=== PATIENT | female | born 1975 | race Caucasian/White ===

== ENCOUNTER 2023-08-25 16:45 | Emergency (ER) | payer OTHER, SELFPAY ==
[2023-08-25 17:36] VITALS: PULSE 95; RESP 18; TEMP 38; O2SAT 98
--- NOTE | 2023-08-25 17:36 | CRLHL7_ITS ---
For Patients: As a result of the Century Cures Act, medical imaging exams and procedure reports are released immediately into your electronic medical record. You may view this report before your referring provider. If you have questions, please contact your health care provider. INDICATION: Fever. Cough. TECHNIQUE: Noncontrast CT images acquired through the paranasal sinuses. COMPARISON: None. FINDINGS: No air-fluid levels to suggest acute sinusitis. Mild mucosal thickening in the maxillary sinuses. The right ethmoid infundibulum is opacified. The left ethmoid infundibulum is partially opacified. The frontal sinuses are hypoplastic. Mild mucosal thickening in the frontal recesses. [id number] opacification of the anterior ethmoid air cells. Mild mucosal thickening in the right greater left sphenoid sinuses. The right sphenoethmoidal recess is opacified. The left sphenoethmoidal recess is clear. Slight rightward nasal septal deviation. No nasal cavity masses. The mastoid air cells are underpneumatized bilaterally. IMPRESSION: Mild paranasal sinus mucosal disease. No air-fluid levels to suggest acute sinusitis. Please note that all CT scans at this facility use dose modulation, iterative reconstruction, and/or weight-based dosing when appropriate to reduce radiation dose to as low as reasonably achievable. Dictated by Darin Sutton MD @ 08/25/2023 7:05:14 PM (Electronically Signed)
--- NOTE | 2023-08-25 17:39 | CRLHL7_ITS ---
For Patients: As a result of the Century Cures Act, medical imaging exams and procedure reports are released immediately into your electronic medical record. You may view this report before your referring provider. If you have questions, please contact your health care provider. INDICATION: Fever, cough. TECHNIQUE: CT chest PE was acquired with 95 cc Isovue 370 IV contrast. COMPARISON: None. FINDINGS: Heart and vasculature: Contrast opacification of the pulmonary arterial tree is adequate. No sign of pulmonary embolism. Prominent heart size. Thoracic aorta and pulmonary artery are normal in caliber. Lungs and pleura: Biapical scarring. Scattered atelectasis. No suspicious nodules or infiltrates. No pleural effusions, pleural thickening, or pneumothorax. Lymph nodes/mediastinum: No mediastinal, hilar, or axillary adenopathy. Chest wall: No masses. Upper abdomen: No acute or significant findings. Bones: Unremarkable for age. IMPRESSION: No pulmonary embolism. No focal consolidations. Please note that all CT scans at this facility use dose modulation, iterative reconstruction, and/or weight-based dosing when appropriate to reduce radiation dose to as low as reasonably achievable. Dictated by Reginald Torres MD @ 08/25/2023 6:49:09 PM (Electronically Signed)
--- NOTE | 2023-08-25 17:52 | ED.GENADULT ---
HPI - General Adult General Chief complaint: Fever Stated complaint: severe stomach pain, passing in and out Time Seen by Provider: 08/25/23 16:57 Source: patient Mode of arrival: ambulatory Limitations: no limitations History of Present Illness HPI narrative: Patient is a 47-year-old woman who says she has been sick for the past few days, seen in the emergency room on August 22 and diagnosed with a sinus infection, and started on Augmentin. She says she has had Augmentin before and she always takes it once a day because it upsets her stomach. She has been taking it twice a day and attributes the stomach pain and nausea that she has to the Augmentin. However, she says that she still does not feel good, she is fatigued, was feeling nauseated earlier and was rushing to the bathroom when she had a syncopal episode. This was unwitnessed, she estimates that she was out for 20 minutes but bases this just on how she felt. She has had a significant cough, says she had an x-ray at the urgency room which was negative. She has not had vomiting or diarrhea, black or bloody stools. No fever at home although she does have a low-grade fever here. No urinary symptoms. She also says that she feels like the right side of her thyroid is much bigger than it normally is. 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 She does smoke, denies alcohol use. Here with family. Related Data Allergies Allergy/AdvReac Type Severity Reaction Status Date / Time acetaminophen [From Vicodin] Allergy Verified 08/25/23 17:02 droperidol Allergy Verified 08/25/23 17:02 hydrocodone [From Vicodin] Allergy Verified 08/25/23 17:02 meperidine Allergy Verified 08/25/23 17:02 Sulfa (Sulfonamide Allergy Verified 08/25/23 17:02 Antibiotics) Review of Systems Status of ROS: Reports: 10 or more systems reviewed and unremarkable except as noted in History and below Exam Narrative: Exam Narrative: Vital signs as noted above. Blood pressure is low, patient says she is chronically hypotensive. In general, an alert, nontoxic woman. Breathing easily. Head: Normocephalic, atraumatic. Eyes: Pupils are equal reactive. Extraocular movements are full. Conjunctivae are normal. ENT: Mucous membranes are moist. Throat is normal. Neck: Supple without lymphadenopathy. No thyromegaly or masses. Heart: Regular rate and rhythm. No murmur or rub. Lungs: Clear bilaterally. No increased work of breathing, crackles or wheezes. Abdomen: Soft and nontender. No organomegaly. Extremities: Well perfused. No edema. No calf tenderness. Pulses intact. Neurologic: Patient is alert and oriented to person and place. Speech is fluent. Face is symmetric. Moves all extremities equally. Affect: Normal. Skin: Warm and dry. Well perfused. Const: Vital Signs, click to edit/add: Vital Signs - 24 hr 08/25/23 19:26 08/25/23 19:31 08/25/23 19:32 Pulse Rate 82 82 Pulse Rate [Pulse Oximeter] 85 Respiratory Rate 16 Blood Pressure 88/67 L Blood Pressure [Le ft Upper Arm] 83/59 L Pulse Oximetry 98 98 98 Oxygen Delivery Me thod Room Air Room Air 08/25/23 19:35 08/25/23 19:36 Pulse Rate 83 83 Pulse Rate [Pulse Oximeter] Respiratory Rate Blood Pressure 100/71 Blood Pressure [Le ft Upper Arm] Pulse Oximetry 97 96 Oxygen Delivery Me thod Documenting provider has reviewed patient's vital signs: yes Course Course ED Course: An IV was placed, labs drawn. I elected to do a CT of the sinuses as well as the chest to evaluate for possible bacterial infection not being adequately treated. We were going to give her fluids but she declined saying that she would rather just hydrate on her own, she is not worried about her blood pressure as she says that is normal for her. Her labs were reassuring, white blood cell count is 10.5, hemoglobin of 13.2. Slight left shift with 79% neutrophils. Metabolic panel is entirely within normal limits, lactate is 0.9, CRP is 0.9. LFTs normal and I checked a TSH which was 1.75. COVID was negative as was flu and RSV. By my review, CT of the sinuses look clear and CT of the chest showed no evidence of consolidation or PE. Read as following by Radiology: FINDINGS: No air-fluid levels to suggest acute sinusitis. Mild mucosal thickening in the maxillary sinuses. The right ethmoid infundibulum is opacified. The left ethmoid infundibulum is partially opacified. The frontal sinuses are hypoplastic. Mild mucosal thickening in the frontal recesses. [id number] opacification of the anterior ethmoid air cells. Mild mucosal thickening in the right greater left sphenoid sinuses. The right sphenoethmoidal recess is opacified. The left sphenoethmoidal recess is clear. Slight rightward nasal septal deviation. No nasal cavity masses. The mastoid air cells are underpneumatized bilaterally. IMPRESSION: Mild paranasal sinus mucosal disease. No air-fluid levels to suggest acute sinusitis. FINDINGS: Heart and vasculature: Contrast opacification of the pulmonary arterial tree is adequate. No sign of pulmonary embolism. Prominent heart size. Thoracic aorta and pulmonary artery are normal in caliber. Lungs and pleura: Biapical scarring. Scattered atelectasis. No suspicious nodules or infiltrates. No pleural effusions, pleural thickening, or pneumothorax. Lymph nodes/mediastinum: No mediastinal, hilar, or axillary adenopathy. Chest wall: No masses. Upper abdomen: No acute or significant findings. Bones: Unremarkable for age. IMPRESSION: No pulmonary embolism. No focal consolidations. Patient is reassured that workup is unrevealing. She does say that Zofran would be helpful for nausea and she requests prednisone as she says that is typically been very helpful for her when she has these kinds of symptoms. Overall, her exam is benign. She did have an EKG which showed a sinus rhythm, normal QT, normal DE, no ST segment changes. Syncopal event likely vagal in nature all things considered although orthostasis cannot be ruled out. Repeat blood pressure was 100/71. She has not been tachycardic. Encourage hydration at home. Return for re-evaluation for worsening symptoms high fevers persistent fainting or other new symptoms. Primary care follow-up if not feeling better over the next several days to week. Vital Signs Vital signs: Initial Vital Signs Pulse Rate 85 08/25/23 19:26 Respiratory Rate 16 08/25/23 19:26 Respiratory Effort Normal, Spontaneous, Non-Labored 08/25/23 19:26 Respiratory Depth Normal 08/25/23 19:26 Respiratory Pattern Normal 08/25/23 19:26 Blood Pressure 83/59 L 08/25/23 19:26 Blood Pressure Mean 67 L 08/25/23 19:26 Blood Pressure Position Sitting 08/25/23 19:26 Pulse Oximetry 98 08/25/23 19:26 Oxygen Delivery Method Room Air 08/25/23 19:26 Vital Signs Pulse Rate 85 08/25/23 19:26 Respiratory Rate 16 08/25/23 19:26 Blood Pressure 83/59 L 08/25/23 19:26 Pulse Oximetry 98 08/25/23 19:26 Oxygen Delivery Method Room Air 08/25/23 19:26 Pulse Rate 83 08/25/23 19:36 Respiratory Rate 16 08/25/23 19:26 Blood Pressure 100/71 08/25/23 19:36 Pulse Oximetry 96 08/25/23 19:36 Oxygen Delivery Method Room Air 08/25/23 19:31 Medical Decision Making Lab Data Labs: Lab Results 08/25/23 Range/Units 17:55 WBC 10.53 (4.50-11.00) K/uL RBC 4.29 (4.00-5.20) m/uL Hgb 13.2 (12.0-16.0) gm/dL Hct 39.3 (33.0-51.0) % MCV 92 (80-100) fL MCH 31 (26-34) pg MCHC 34 (32-36) gm/dL RDW Coeff of Heath 12.3 (11.5-15.5) % Plt Count 236 (140-440) K/uL Neut % (Auto) 79.9 H (42.0-72.0) % Lymph % (Auto) 13.7 L (20-44) % [place] % (Auto) 5.4 (0.0-11.0) % Eos % (Auto) 0.5 (0.0-7.0) % Baso % (Auto) 0.3 (0.0-3.0) % Neut # (Auto) 8.40 H (1.7-7.0) K/uL Lymph # (Auto) 1.40 (0.90-2.90) K/uL [place] # (Auto) 0.60 (0.00-0.90) K/UL Eos # (Auto) 0.05 (0.00-0.50) K/uL Baso # (Auto) 0.03 (0.00-0.30) K/uL Abs Immat Gran (auto) 0.02 (0.00-0.30) K/uL Imm/Tot Granulo (auto) 0.2 % Sodium 138 (135-149) mmol/L Potassium 4.4 (3.6-5.1) mmol/L Chloride 105 (96-114) mmol/L Carbon Dioxide 28 (20-32) mmol/L Anion Gap 5 L (7-15) mEq/L BUN 9 (5-24) mg/dL Creatinine 0.9 (0.5-1.5) mg/dL Estimated GFR 80 ml/min Glucose 97 (60-115) mg/dL Lactate 0.9 (0.5-1.9) mmol/L Calcium 9.5 (8.4-10.6) mg/dL Total Bilirubin 0.4 (0.1-1.5) mg/dL Direct Bilirubin 0.0 (0.0-0.5) mg/dL AST 31 (12-35) U/L ALT 17 (4-35) U/L Alkaline Phosphatase 47 (40-150) U/L C-Reactive Protein 0.9 (0.5-1.0) mg/dL Total Protein 7.3 (6.0-8.3) g/dL Albumin 4.4 (3.3-5.0) g/dL TSH 1.750 (0.270-4.200) uIU/mL SARS-CoV-2 (PCR) Negative SARS-CoV-2 (Negative) Influenza Type A (PCR) Negative PCR FLU A (Negative) Influenza Type B (PCR) Negative PCR FLU B (Negative) RSV (PCR) Negative PCR RSV (Negative) Discharge Plan Discharge Clinical Impression: Viral infection Patient Disposition: Home, Self-Care Condition: Stable Instructions: Viral Syndrome (ED) Additional Instructions: Medications as prescribed. Hydration at home. Return for worsening, repeat fainting, vomiting or persistent high fevers. Primary care follow-up if not improving next few days to week. Follow Up/Referrals: Provider,Not a Local [Primary Care Provider] - Stand Alone Forms: Transit App Info Instructions
[2023-08-25 18:06] LABS: Lactate Sepsis w/Reflex* 0.9 mmol/L (0.5-1.9)
[2023-08-25 18:07] LABS: Hematocrit 39.3 % (33.0-51.0); Hemoglobin* 13.2 gm/dL (12.0-16.0); Mean Corpuscular HGB Conc 34 gm/dL (32-36); Mean Corpuscular Hemoglobin 31 pg (26-34); Mean Corpuscular Volume 92 fL (80-100); Neutrophils Percent Auto 79.9 % (42.0-72.0); Platelet Count* 236 K/uL (140-440); RDW Coefficient of Variation % 12.3 % (11.5-15.5); Red Blood Count 4.29 m/uL (4.00-5.20); White Blood Count* 10.53 K/uL (4.50-11.00)
[2023-08-25 18:08] LABS: Basophils Absolute Auto 0.03 K/uL (0.00-0.30); Basophils Percent Auto 0.3 % (0.0-3.0); Eosinophils Absolute Auto 0.05 K/uL (0.00-0.50); Eosinophils Percent Auto 0.5 % (0.0-7.0); Immature Granulocytes Abs Auto 0.02 K/uL (0.00-0.30); Immature Granulocytes Pct Auto 0.2 %; Lymphocytes Percent Auto 13.7 % (20-44); Monocytes Percent Auto 5.4 % (0.0-11.0)
[2023-08-25 18:10] LABS: Slide Review Reflex No
[2023-08-25 18:33] LABS: Albumin* 4.4 g/dL (3.3-5.0); Chloride* 105 mmol/L (96-114); Sodium* 138 mmol/L (135-149)
[2023-08-25 18:34] LABS: Potassium* 4.4 mmol/L (3.6-5.1)
[2023-08-25 18:35] LABS: Creatinine* 0.9 mg/dL (0.5-1.5); Estimated Glomerular Filt Rate 80 ml/min
[2023-08-25 18:36] LABS: Alanine Aminotransferase* 17 U/L (4-35); Alkaline Phosphatase* 47 U/L (40-150); Anion Gap 5 mEq/L (7-15); Aspartate Amino Transferase* 31 U/L (12-35); Bilirubin Total* 0.4 mg/dL (0.1-1.5); Blood Urea Nitrogen* 9 mg/dL (5-24); Carbon Dioxide* 28 mmol/L (20-32); Glucose* 97 mg/dL (60-115); Total Protein* 7.3 g/dL (6.0-8.3)
[2023-08-25 18:37] LABS: Calcium* 9.5 mg/dL (8.4-10.6)
[2023-08-25 18:39] LABS: C Reactive Protein* 0.9 mg/dL (0.5-1.0)
[2023-08-25 18:49] LABS: PCR FLU A Negative PCR FLU A (Negative); PCR FLU B Negative PCR FLU B (Negative); PCR RSV Negative PCR RSV (Negative)
[2023-08-25 18:54] LABS: SARS PCR* Negative SARS-CoV-2 (Negative)
[2023-08-25 19:26] VITALS: BP 83/59; PULSE 85; RESP 16; O2SAT 98
[2023-08-25 19:31] VITALS: BP 88/67; PULSE 82; O2SAT 98
[2023-08-25 19:32] VITALS: PULSE 82; O2SAT 98
[2023-08-25 19:35] VITALS: PULSE 83; O2SAT 97
[2023-08-25 19:36] VITALS: BP 100/71; PULSE 83; O2SAT 96
== END 2023-08-25 20:00 | disposition home or self-care (01) ==
PROVIDERS: Emergency Provider Emergency Medicine
DX: B34.9 Viral infection, unspecified (principal)
CPT/HCPCS: 36415; 70486; 71275; 80048; 80076; 83605; 84443; 85025; 86140; 87631; 93005; 99284; 99285; Q9967